=== PATIENT | male | born 1950 | race Caucasian/White ===

== ENCOUNTER 2022-07-09 18:17 | Emergency (ER) | payer MEDICARE ==
[2022-07-09] VITALS (16 sets, daily range): BP systolic 115–191; BP diastolic 52–92
[~2022-07-09] VITALS: Ht 167.6 cm; Wt 86.6 kg
[2022-07-09 19:31] LABS: BASO% 0.3 % (0-3); EOS% 1.8 % (0-8); HEMOGLOBIN 14.1 g/dl (14.0-18.0); IMMATURE GRANULOCYTES 0.2 % (0.0-5.0); LYMPH% 30.3 % (15-41); MEAN CELL VOLUME 88.6 fL CALC (80.0-100.0); MEAN CORPUSCULAR HGB 29.7 pG CALC (26.0-32.0); MEAN CORPUSCULAR HGB CONC 33.6 g/dL CAL (32.0-36.0); MONO% 7.8 % (2-13); NEUT# 3.65 thou/uL (1.82-7.42); NEUT% 59.6 % (42-76); RED BLOOD COUNT 4.74 mill/uL (4.70-6.10); RED CELL DISTRI WIDTH 12.6 % (11.5-15.5)
[2022-07-09] MEDS ORDERED: BUSPIRONE5 MG PO (19:33)
[2022-07-09] MEDS ORDERED: PRAVASTATIN40 MG PO (19:33)
[2022-07-09] MEDS ORDERED: ELIQUIS5 MG PO (19:34)
[2022-07-09] MEDS ORDERED: COREG6.25 MG PO (19:34)
[2022-07-09] MEDS ORDERED: NORVASC2.5 M1 PO (19:35)
[2022-07-09] MEDS ORDERED: XYZAL ALLERGY 245 MG PO (19:40)
[2022-07-09] MEDS ORDERED: D3 ULTRA ST5000 UNIT PO (19:41)
[2022-07-09] MEDS ORDERED: TIZANIDINE2 MG PO (19:41)
[2022-07-09 19:42] LABS: ALBUMIN 4.3 g/dL (3.2-5.0); ALKALINE PHOSPHATASE 56 u/l (38-126); ANION GAP 10 (6-22 (CALC)); BILIRUBIN, TOTAL 1.1 mg/dL (0.2-1.3); BUN 20 mg/dL (8-23); BUN/CREATININE RATIO 17 (12-20 (CALC)); CARBON DIOXIDE 25 mmol/l (22-30); CHLORIDE 106 mmol/l (95-108); CREATININE 1.2 mg/dL (0.7-1.3); GFR FOR AFR.AMER. > 60 ML/MIN (>=60 (CALC)); GFR OTHER RACES 60 ML/MIN (>=60 (CALC)); POTASSIUM 4.1 mmol/l (3.5-5.1); SGOT/AST 48 u/l (19-48); SODIUM 136 mmol/l (137-146); TOTAL PROTEIN 7.1 g/dL (6.3-8.2)
[2022-07-09] MEDS ORDERED: HYDROCHLOROT25 MG PO (19:42)
[2022-07-09 20:39] LABS: URINE BILIRUBIN - DIPSTICK NEGATIVE (NEGATIVE); URINE BLOOD DIPSTICK LARGE (NEGATIVE); URINE GLUCOSE - DIPSTICK 250 mg/dL (NEGATIVE); URINE KETONE NEGATIVE (NEGATIVE); URINE LEUK ESTERASE NEGATIVE (NEGATIVE); URINE PH 5.5 (4.5-8.0); URINE PROTEIN - DIPSTICK NEGATIVE (NEG-TRACE); URINE UROBILINOGEN - DIPSTICK 0.2 E.U./dL (0.2)
[2022-07-09 20:54] LABS: URINE COLOR DK. YELLOW; URINE NITRITE - DIPSTICK NEGATIVE (Negative)
[2022-07-09 20:55] LABS: URINE RBC >100 RBC/hpf (0-5); URINE SQUAMOUS EPITHELIAL CELL RARE EPI/hpf (0-FEW)
[2022-07-09] MEDS ORDERED: TAMSULOSIN0.4 MG PO (21:19)
[2022-07-09] MEDS ORDERED: TYLENOL # 31 TA1 PO (21:19)
== END 2022-07-09 22:50 | disposition home or self-care (01) ==
LOC: ED 18:17
PROVIDERS: Family Medicine
DX: N13.2 Hydronephrosis with renal and ureteral calculous obstruction (principal); R73.9 Hyperglycemia, unspecified; I10 Essential (primary) hypertension; E78.5 Hyperlipidemia, unspecified; Z87.442 Personal history of urinary calculi

== ENCOUNTER 2023-07-11 11:49 | Emergency (ER) | payer MEDICARE ==
[~2023-07-11] VITALS: Ht 172.7 cm; Wt 84.0 kg
[2023-07-11] VITALS (14 sets, daily range): BP systolic 137–174; BP diastolic 54–81
[~2023-07-11 11:49] MED LIST: BUSPIRONE5 MG PO; COREG6.25 MG PO; D3 ULTRA ST5000 UNIT PO; ELIQUIS5 MG PO; HYDROCHLOROT25 MG PO; LEVAQUIN750 M1 PO; NORVASC2.5 M1 PO; PERCOCET 5/321 COMBO PO; PRAVASTATIN40 MG PO; TAMSULOSIN0.4 MG PO; TIZANIDINE2 MG PO; TYLENOL # 31 TA1 PO; XYZAL ALLERGY 245 MG PO
[2023-07-11] MEDS ORDERED: SODIUM CHLORIDE 0.9% 1,000 ML IV ONE (13:10)
[2023-07-11] MEDS ORDERED: ONDANSETRON HCl 4 MG/2 ML SDV IV ONE (13:15)
[2023-07-11] MEDS ORDERED: KETOROLAC TROMETHAMINE 30 MG/ML SDV IV ONE (13:15)
[2023-07-11 13:27] LABS: BASO% 0.2 % (0-3); EOS% 1.6 % (0-8); HEMATOCRIT 44.3 % (39.0-50.0); HEMOGLOBIN 15.1 g/dl (14.0-18.0); IMMATURE GRANULOCYTES 0.1 % (0.0-5.0); LYMPH% 14.6 % (15-41); MEAN CELL VOLUME 88.4 fL CALC (80.0-100.0); MEAN CORPUSCULAR HGB 30.1 pG CALC (26.0-32.0); MEAN CORPUSCULAR HGB CONC 34.1 g/dL CAL (32.0-36.0); MONO% 6.3 % (2-13); NEUT# 9.28 thou/uL (1.82-7.42); NEUT% 77.2 % (42-76); RED BLOOD COUNT 5.01 mill/uL (4.70-6.10); RED CELL DISTRI WIDTH 13.3 % (11.5-15.5)
[2023-07-11 13:47] LABS: CREATININE 1.6 mg/dL (0.7-1.3); POTASSIUM 4.4 mmol/l (3.5-5.1)
[2023-07-11 13:49] LABS: ALBUMIN 4.5 g/dL (3.2-5.0); BILIRUBIN, TOTAL 1.5 mg/dL (0.2-1.3); TOTAL PROTEIN 8.1 g/dL (6.3-8.2)
[2023-07-11] MEDS ORDERED: TAMSULOSIN HCL 0.4 MG CAP PO ONE (15:30)
[2023-07-11] MEDS ORDERED: HYDROmorphone HCL 2 MG/AMP IV ONE (15:30)
[2023-07-11 16:13] LABS: URINE BILIRUBIN - DIPSTICK Negative (NEGATIVE); URINE BLOOD DIPSTICK Large (NEGATIVE); URINE GLUCOSE - DIPSTICK 100 mg/dL (NEGATIVE); URINE KETONE Negative (NEGATIVE); URINE LEUK ESTERASE Negative (NEGATIVE); URINE NITRITE - DIPSTICK Negative (Negative); URINE PH 5.5 (4.5-8.0); URINE PROTEIN - DIPSTICK Negative (NEG-TRACE); URINE UROBILINOGEN - DIPSTICK 0.2 E.U./dL (0.2)
[2023-07-11 16:15] LABS: URINE COLOR Yellow
[2023-07-11] MEDS ORDERED: TAMSULOSIN0.4 MG PO (16:35)
[2023-07-11] MEDS ORDERED: LORTAB 5/3255 MG PO (16:35)
[2023-07-11] MEDS ORDERED: TORADOL PO (16:35)
== END 2023-07-11 17:06 | disposition home or self-care (01) ==
LOC: ED 11:49
PROVIDERS: Nurse Practitioner
DX: N13.2 Hydronephrosis with renal and ureteral calculous obstruction (principal); I10 Essential (primary) hypertension; I48.91 Unspecified atrial fibrillation; Z87.442 Personal history of urinary calculi